=== PATIENT | male | born 1975 | race Caucasian/White ===

== ENCOUNTER → 2019-04-24 10:26 | Outpatient (CLI) | payer BC ==
[2012-08-01 18:08] VITALS: BMI 36.6
[~2019-04-24 10:26] MED LIST: CREON DR 6,0001 EACH; DIABETA5 MG CT; DULCOLAX5 MG PO; GLIPIZIDE10 MG PO; GLUCOPHAGE1000 MG PO; HUMALOG100 U/M1; LANTUS SOL100 UNIT/1 SQ; LOPID600 MG; MILK OF MAGNESI30 ML PO; MIRALAX17 GM PO; PEPCID20 MG PO; PRAVACHOL40 MG PO; PRINIVIL20 MG PO; REGLAN10 MG PO; TRICOR145 MG PO
[2019-04-24 11:45] LABS: BASOPHILS 0.2 % (0-2); EOSINOPHILS 2.4 % (0-7); HEMATOCRIT 37.9 % (42.0-54.0); LYMPHOCYTES 27.6 % (15-50); MCV 83.5 fL (80.0-100.0); MONOCYTES 17.5 % (2-11); NEUTROPHILS 51.3 % (40-80); PLATELET COUNT 164 10x3/uL (130-400); RBC 4.54 10x6/uL (4.20-6.10); RDW 13.7 % (11.5-14.5); WBC 4.2 10x3/uL (4.8-10.8)
[2019-04-24 11:58] LABS: NITRITE NEGATIVE (NEGATIVE); SPECIFIC GRAVITY 1.015 (1.005-1.020)
[2019-04-24 11:59] LABS: BILIRUBIN NEGATIVE (NEGATIVE); KETONE NEGATIVE (NEGATIVE); UROBILINOGEN NORMAL (NORMAL)
[2019-04-24 12:02] LABS: GLUCOSE 1000 mg/dL (NEGATIVE)
[2019-04-24 12:14] LABS: MCH 28.4 pg (26.0-34.0)
[2019-04-24 12:15] LABS: HEMOGLOBIN 12.9 g/dL (13.5-17.5)
[2019-04-24 12:55] LABS: ALBUMIN 3.5 g/dL (3.4-5.0); ALKALINE PHOSPHATASE 72 U/L (30-120); ALT (SGPT) 47 U/L (10-68); BILIRUBIN - TOTAL 0.24 mg/dL (0.2-1.3); CALC OSMOLALITY 283 mosm/kg (275-300); CALCIUM 8.2 mg/dL (8.5-10.1); CARBON DIOXIDE 26.3 mmol/L (21.0-32.0); CHLORIDE - SERUM 101 mmol/L (98-107); CREATININE - SERUM 0.8 mg/dL (0.6-1.3); POTASSIUM - SERUM 3.8 mmol/L (3.5-5.1); PROTEIN - SERUM 6.1 g/dL (6.4-8.2); SODIUM 137 mmol/L (136-145); UREA NITROGEN 13 mg/dL (7-18); eGFR NON AFRICAN AMERICAN > 90 mL/min (90-120)
[2019-04-24 12:56] LABS: CHOLESTEROL, TOTAL 504 mg/dL (0-200); TRIGLYCERIDE 5490 mg/dL (30-200)
[2019-04-24 12:57] LABS: THYROID STIMULATING HORMONE 2.54 uIU/mL (0.36-3.74)
[2019-04-24 12:58] LABS: CHOL - HDL RATIO 19.4 ratio (2.3-4.9); GLUCOSE 286 mg/dL (74-106); HDL CHOLESTEROL 26 mg/dL (32-96)
[2019-04-26 08:11] LABS: CREATININE - URINE 100.9 mg/dL (Not Estab.); MICROALBUMIN - URINE 6.1 ug/mL (Not Estab.)
== END | disposition home or self-care (01) ==
LOC: D.LAB 10:26
PROVIDERS: ATTEND Family Medicine
DX: Z00.00 Encounter for general adult medical examination without abnormal findings (principal); I10 Essential (primary) hypertension; E11.9 Type 2 diabetes mellitus without complications; E78.1 Pure hyperglyceridemia

== ENCOUNTER 2019-05-07 13:07 | Inpatient (IN) | payer BC ==
[~2019-05-07] VITALS: Ht 193 cm; Wt 137.0 kg
[2019-05-07 13:49] LABS: BASOPHILS 0.1 % (0-2); EOSINOPHILS 1.4 % (0-7); HEMATOCRIT 39.6 % (42.0-54.0); HEMOGLOBIN 14.1 g/dL (13.5-17.5); IMMATURE GRANULOCYTES 0.1 % (0-5); LYMPHOCYTES 16.1 % (15-50); MCH 29.8 pg (26.0-34.0); MCHC 35.6 g/dL (31.0-37.0); MCV 83.7 fL (80.0-100.0); MEAN PLATELET VOLUME 8.9 fL (7.4-10.4); MONOCYTES 7.2 % (2-11); NEUTROPHILS 75.1 % (40-80); PLATELET COUNT 140 10x3/uL (130-400); RBC 4.73 10x6/uL (4.20-6.10); RDW 13.6 % (11.5-14.5); WBC 6.9 10x3/uL (4.8-10.8)
[2019-05-07 14:34] LABS: AMYLASE - SERUM 166 U/L (25-115)
[2019-05-07 14:35] LABS: CALC OSMOLALITY 278 mosm/kg (275-300); CREATININE - SERUM 0.7 mg/dL (0.6-1.3); SODIUM 132 mmol/L (136-145); UREA NITROGEN 13 mg/dL (7-18); eGFR NON AFRICAN AMERICAN > 90 mL/min (90-120)
[2019-05-07 14:36] LABS: CARBON DIOXIDE 24.8 mmol/L (21.0-32.0); CHLORIDE - SERUM 97 mmol/L (98-107); POTASSIUM - SERUM 4.3 mmol/L (3.5-5.1)
[2019-05-07 14:37] LABS: ALBUMIN 3.6 g/dL (3.4-5.0); ALKALINE PHOSPHATASE 78 U/L (30-120); ALT (SGPT) 44 U/L (10-68); BILIRUBIN - TOTAL 0.54 mg/dL (0.2-1.3); CALCIUM 8.2 mg/dL (8.5-10.1); PROTEIN - SERUM 6.1 g/dL (6.4-8.2)
[2019-05-07 14:38] LABS: GLUCOSE 343 mg/dL (74-106)
[2019-05-07 14:39] LABS: LIPASE 3572 U/L (73-393)
--- NOTE | 2019-05-07 14:39 | NUR ---
URINE SENT TO THE LAB
[2019-05-07 15:00] LABS: BILIRUBIN NEGATIVE (NEGATIVE); GLUCOSE 1000 mg/dL (NEGATIVE); KETONE SMALL mg/dL (NEGATIVE); NITRITE NEGATIVE (NEGATIVE); UROBILINOGEN NORMAL (NORMAL)
--- NOTE | 2019-05-07 17:00 | NUR ---
RECEIVED PT FROM ER NURSE Jg LINK RN. PT IS ALERT AND ORIENTED, IV TO RT WRIST INTACT, SITE IS CLEAN AND NO S/SX OF SWELLING. WENT OVER PT MED LIST AND PT STATES HE TAKE INSULIN AT HOME BUT HIS WOULD BRING THE LIST LATER, PT STATED HE HAD NOT HAD ANY MEDICATIONS BUT 1 ON THE MED REQ SINCE LAST VISIT. VERBALIZED TO PT THAT I WILL NEED TO UPDATE MED REC SOON POSSIBLE. CL IN REACH BED IN LOWEST POSITION, NO OTHER NEEDS VOICED WILL CONTINUE WITH PLAN OF CARE
[2019-05-07 20:00] VITALS: BP 146/81
[2019-05-07] MEDS ORDERED: LEVEMIR IN100 UNITS/ SC (23:07)
[2019-05-07] MEDS ORDERED: CRESTOR20 MG PO (23:07)
[2019-05-07] MEDS ORDERED: FENOFIBRATE160 MG PO (23:08)
[2019-05-07] MEDS ORDERED: K-TAB10 MEQ PO (23:08)
[2019-05-08 03:22] VITALS: BMI 36.8
--- NOTE | 2019-05-08 03:50 | NUR ---
PT RESTING IN BED. EYES CLOSED. NO SIGNS OF DISTRESS. BREATHING EVEN AND UNLABORED. IV SITE RT WRIST DRESSING CLEAN DRY AND INTACT. NO SIGNS OF INFECTION OR INFULTRATION. LUNG SOUNDS CLEAR. BOWEL SOUNDS ACTIVE. ABD DISTENDED TENDERNESS TO PALPATION. SKIN CLEAN DRY AND INTACT. WILL CONTINUE PLAN OF CARE. CALL LIGHT IN REACH. BED LOWERED AND LOCKED. BED RAILS UPX2.
[2019-05-08 04:00] VITALS: BP 142/82
--- NOTE | 2019-05-08 04:22 | NUR ---
I have reviewed this patient and I concur with the Shift Assessment completed by the Licensed Practical Nurse today this shift.
[2019-05-08 08:27] LABS: CHOLESTEROL, TOTAL 312 mg/dL (0-200); HDL CHOLESTEROL 24 mg/dL (32-96)
[2019-05-08 08:39] LABS: AMYLASE - SERUM 51 U/L (25-115); LIPASE 415 U/L (73-393); TRIGLYCERIDE 2385 mg/dL (30-200)
[2019-05-08 08:58] VITALS: BP 134/79
[2019-05-08 12:26] VITALS: BP 127/76
[2019-05-08 12:57] VITALS: Ht 193 cm; Wt 137.0 kg
--- NOTE | 2019-05-08 16:57 | MORECARE ---
CASE MANAGEMENT DISCHARGE SUMMARY PATIENT: JUHI GERMAIN II UNIT: [id number] ADM DATE: 05/07/19 AGE: 43 : 75 SEX: M ROOM/BED: D.2220 AUTHOR: LOUISA DC PHYSICIAN: REFERRING PHYSICIAN: JULIAN REDDY MD DATE OF SERVICE: 05/08/19 Discharge Plan Patient Name: JUHI GERMAIN [facility] [facility] 1975 Planned Disposition: Home Anticipated Discharge Date: 05/12/19 Discharge Date: Expected LOS: 5 Initial Reviewer: [email or web address] Initial Review Date: 05/07/2019 Generated: 05/08/19 5:57 pm DCPIA - Discharge Planning Initial Assessment Updated by [email or web address]: Tammy Blake on 05/08/19 4:56 pm * Is the patient Alert and Oriented? Yes * How many steps to enter\exit or inside your home? one * PCP Dr. Reddy * [facility] * Preadmission Environment Home with Family * ADLs Independent * Equipment None * List name and contact numbers for known caregivers / representatives who currently or will assist patient after discharge: Basilio germain - spouse - [phone] * Verbal permission to speak to the caregivers and representatives has been obtained from the patient. Yes * Community resources currently utilized None * Additional services required to return to the preadmission environment? No * Can the patient safely return to the preadmission environment? Yes * Has this patient been hospitalized within the prior 30 days at any hospital? No Patient Name: JUHI GERMAIN Page [id number] at 1657 All edits/amendments must be made on the electronic document DICTATION DATE: 05/08/191656 CLERICAL ADJUDICATOR: JERI 05/08/191656 RPT#: [id number] DC DATE: STATUS: ADM IN [facility] [address] [place] [address] END OF REPORT
--- NOTE | 2019-05-08 17:06 | MORECARE ---
CASE MANAGEMENT DISCHARGE SUMMARY PATIENT: JUHI GERMAIN II UNIT: [id number] ADM DATE: 05/07/19 AGE: 43 : 75 SEX: M ROOM/BED: D.2220 AUTHOR: DAO,DOC PHYSICIAN: REFERRING PHYSICIAN: JULIAN REDDY MD DATE OF SERVICE: 05/08/19 Discharge Plan Patient Name: JUHI GERMAIN Facility: [facility]:[place] : 1975 Planned Disposition: Home Anticipated Discharge Date: 05/12/19 Discharge Date: Expected LOS: 5 Initial Reviewer: [email or web address] Initial Review Date: 05/07/2019 Generated: 05/08/19 6:05 pm DCP- Discharge Planning Updated by [email or web address]: Tammy Blake on 05/08/19 3:[address] DC PLAN: Home with spouse independently. ANTICIPATED DC NEEDS: Denied known dc needs. CM met with patient to complete initial dc planning assessment. CM educated patient on the CM role and verbal consent given by patient to complete assessment. CM verified patient's address, phone number, and emergency contact phone numbers. Patient lives at home independently with his . At discharge patient plans to return home and feels this is a safe discharge. CM discussed availability of home health, rehab services, and medical equipment. Patient denied known discharge needs at this time. Transportation provider at discharge will be . CM will continue to follow and will assist as needed with dc plans/needs. Tammy Blake RN, [facility] DCPIA - Discharge Planning Initial Assessment Updated by [email or web address]: Tammy Blake on 05/08/19 4:56 pm * Is the patient Alert and Oriented? Yes * How many steps to enter\exit or inside your home? one * PCP Dr. Reddy * Pharmacy [facility] on [address] * Preadmission Environment Home with Family * ADLs Independent * Equipment None * List name and contact numbers for known caregivers / representatives who currently or will assist patient after discharge: Basilio germain - spouse - [phone] * Verbal permission to speak to the caregivers and representatives has been obtained from the patient. Yes * Community resources currently utilized None * Additional services required to return to the preadmission environment? No * Can the patient safely return to the preadmission environment? Yes * Has this patient been hospitalized within the prior 30 days at any hospital? No Last DP export: 05/08/19 3:57 p Patient Name: JUHI GERMAIN Page [id number] at 1706 All edits/amendments must be made on the electronic document DICTATION DATE: 05/08/191704 BALLPOINT PENS ASSEMBLER: JERI 05/08/191704 RPT#: [id number] DC DATE: STATUS: ADM IN [facility] [address] [place] [address] END OF REPORT
[2019-05-08 17:15] VITALS: BP 153/96
--- NOTE | 2019-05-08 18:02 | NUR ---
I have reviewed this patient and I concur with the Shift Assessment completed by the Licensed Practical Nurse today this shift.
[2019-05-08 20:00] VITALS: BP 146/82
[2019-05-09] VITALS: BP 136/80
[2019-05-09 04:00] VITALS: BP 142/78
--- NOTE | 2019-05-09 04:21 | NUR ---
I have reviewed this patient and I concur with the Shift Assessment completed by the Licensed Practical Nurse today this shift.
--- NOTE | 2019-05-09 05:16 | NUR ---
I have reviewed this patient and I concur with the Shift Assessment completed by the Licensed Practical Nurse today this shift.
--- NOTE | 2019-05-09 08:33 | NUR ---
0700: PATIENT LYING IN BED. A&OX4. RESPIRATIONS EVEN AND UNLABORED. COMPLAINS OF PAIN 7/10 TO ABDOMEN. PAIN MED GIVEN PER ORDER. NO OTHER NEEDS AT THIS TIME. WILL CONTINUE TO MONITOR.
[2019-05-09 09:17] LABS: AMYLASE - SERUM 20 U/L (25-115); LIPASE 156 U/L (73-393)
[2019-05-09 09:39] VITALS: BP 130/79
--- NOTE | 2019-05-09 12:38 | NUR ---
PT RECD FROM EGD. PT IS AAO X 4. VERBAL ORDERS TO RESUME DIET TO CLEAR LIQUIDS. DIETARY NOTIFIED OF NEED FOR TRAY. VSS. SEE FLOWSHEET. PT DENIES PRESENCE OF N/V/DYSPNEA AT THIS TIME. PT REPORTS ABDOMINAL DISCOMFORT RATED 5/10 BUT DENIES NEEDS. BED IS IN THE LOWEST POSITION. CALL LIGHT AND BEDSIDE TABLE ARE WITHIN REACH. SIDE RAILS X 2. WILL NOTIFY SHIFT NURSE OF PT ARRIVAL.
[2019-05-09 12:41] VITALS: BP 146/91
[2019-05-09 16:37] VITALS: BP 133/82
--- NOTE | 2019-05-09 18:55 | NUR ---
PATIENT ALERT AND ORIENTED. HYPOACTIVE BOWEL SOUNDS. PATIENT REPORTS BOWEL MOVEMENT TODAY. LOOSE. CURRENTLY ON FULL LIQUID DIET. CALL LIGHT IN REACH. CPOC.
--- NOTE | 2019-05-09 19:12 | NUR ---
PATIENT REQUESTING PAIN MEDICINE. RATES PAIN 7/10 IN ABDOMEN. ADMINISTERED DILAUDID 1 MG PER ORDER. DENIES FURTHER NEEDS AT THIS TIME. CALL LIGHT IN REACH. CPOC.
[2019-05-09 20:00] VITALS: BP 128/76
--- NOTE | 2019-05-09 23:41 | NUR ---
PATIENT COMPLAINING OF IV ITCHING AND BURNING. NO SIGNS OF INFILTRATION. REMOVED WITH CATH IN TACT. RESITED IV TO THE LEFT FOREARM, 22G, X1 ATTEMPT. CPOC
[2019-05-10] VITALS: BP 128/77
--- NOTE | 2019-05-10 03:00 | NUR ---
I have reviewed this patient and I concur with the Shift Assessment completed by the Licensed Practical Nurse today this shift.
[2019-05-10 04:00] VITALS: BP 126/79
[2019-05-10 07:47] VITALS: BP 114/76
[2019-05-10] MEDS ORDERED: CRESTOR10 MG PO (09:23)
[2019-05-10] MEDS ORDERED: LISINOPRIL10 MG PO (09:24)
[2019-05-10] MEDS ORDERED: Pancrease 5000,17,00 PO (09:24)
[2019-05-10] MEDS ORDERED: PROTONIX40 MG PO (09:25)
[2019-05-10] MEDS ORDERED: CARAFATE1 G PO (09:25)
--- NOTE | 2019-05-10 09:26 | NUR ---
0715 PATIENT SITTING UP IN BED. RESPIRATIONS EVEN AND UNLABORED. PATIENT COMPLAINS OF PAIN AT 4/10 TO ABDOMEN. VSS. NO NEEDS AT THIS TIME. WILL CONTINUE TO MONITOR.
--- NOTE | 2019-05-10 10:17 | NUR ---
PATIENT HAS BEEN DISCHARGED. REMOVED IV FROM LEFT FOREARM. HELD PRESSURE FOR 1 MINUTE APPLIED DRESSING. WENT OVER DISCHARGE INSTRUCTIONS WITH PATIENT. PATIENT REFUSED ASSISTANCE TO GO DOWNSTAIR TO MEET HIS . AMBULATED DOWN WARD WITH NO PROBLEMS.
--- NOTE | 2019-05-10 14:32 | MORECARE ---
CASE MANAGEMENT DISCHARGE SUMMARY PATIENT: JUHI GERMAIN II UNIT: [id number] ADM DATE: 05/07/19 AGE: 43 : 75 SEX: M ROOM/BED: D.2220 AUTHOR: DAO,DOC PHYSICIAN: REFERRING PHYSICIAN: JULIAN REDDY MD DATE OF SERVICE: 05/10/19 Discharge Plan Patient Name: JUHI GERMAIN Facility: [facility]:[place] : 1975 Planned Disposition: Home Anticipated Discharge Date: 05/12/19 Discharge Date: 05/10/2019 Expected LOS: 5 Initial Reviewer: [email or web address] Initial Review Date: 05/07/2019 Generated: 05/10/19 3:32 pm DCP- Discharge Planning Updated by [email or web address]: Tammy Blake on 05/08/19 3:[address] DC PLAN: Home with spouse independently. ANTICIPATED DC NEEDS: Denied known dc needs. CM met with patient to complete initial dc planning assessment. CM educated patient on the CM role and verbal consent given by patient to complete assessment. CM verified patient's address, phone number, and emergency contact phone numbers. Patient lives at home independently with his . At discharge patient plans to return home and feels this is a safe discharge. CM discussed availability of home health, rehab services, and medical equipment. Patient denied known discharge needs at this time. Transportation provider at discharge will be . CM will continue to follow and will assist as needed with dc plans/needs. Tammy Blake RN, [facility] DCPIA - Discharge Planning Initial Assessment Updated by [email or web address]: Tammy Blake on 05/08/19 4:56 pm * Is the patient Alert and Oriented? Yes * How many steps to enter\exit or inside your home? one * PCP Dr. Reddy * Pharmacy [facility] on [address] * Preadmission Environment Home with Family * ADLs Independent * Equipment None * List name and contact numbers for known caregivers / representatives who currently or will assist patient after discharge: Basilio germain - spouse - [phone] * Verbal permission to speak to the caregivers and representatives has been obtained from the patient. Yes * Community resources currently utilized None * Additional services required to return to the preadmission environment? No * Can the patient safely return to the preadmission environment? Yes * Has this patient been hospitalized within the prior 30 days at any hospital? No Last DP export: 05/08/19 4:06 p Patient Name: JUHI GERMAIN Page [id number] at 1432 All edits/amendments must be made on the electronic document DICTATION DATE: 05/10/191431 LINING INSERTER: JERI 05/10/191431 RPT#: [id number] DC DATE:05/10/19 STATUS: DIS IN [facility] [address] [facility] [place] [address] END OF REPORT
== END 2019-05-10 10:21 | disposition home or self-care (01) | DRG 438 ==
LOC: D.ER 13:07 → D.MS 14:43
PROVIDERS: Emergency Medicine; Internal Medicine Gastroenterology; ADMIT Family Medicine; ATTEND Family Medicine
PROC: 0DB78ZX Excision of Stomach, Pylorus, Via Natural or Artificial Opening Endoscopic, Diagnostic (ICD-10-PCS; 2019-05-09)
PROC: 0DB98ZX Excision of Duodenum, Via Natural or Artificial Opening Endoscopic, Diagnostic (ICD-10-PCS; principal; 2019-05-09 12:00)
DX: K85.90 Acute pancreatitis without necrosis or infection, unspecified (principal); K29.71 Gastritis, unspecified, with bleeding; E11.9 Type 2 diabetes mellitus without complications; I10 Essential (primary) hypertension; E78.5 Hyperlipidemia, unspecified; E78.1 Pure hyperglyceridemia; G47.33 Obstructive sleep apnea (adult) (pediatric); K21.0 Gastro-esophageal reflux disease with esophagitis; K59.01 Slow transit constipation